=== PATIENT | female | born 1940 | race Caucasian/White ===

== ENCOUNTER 2018-10-05 14:23 | Inpatient (IN) | payer OTHER ==
[~2018-10-05] VITALS: Ht 154.9 cm; Wt 67.5 kg
[2018-10-05] MEDS ORDERED: PREDNISONE20 MG PO (15:41)
[2018-10-05] MEDS ORDERED: METFORMIN HYDR500 M1 PO (15:42)
[2018-10-05] MEDS ORDERED: ARICEPT5 MG PO (15:42)
[2018-10-05] MEDS ORDERED: FENOFIBRATE54 M1 PO (15:42)
[2018-10-05] MEDS ORDERED: SINGULAIR10 MG PO (15:43)
[2018-10-05 15:59] LABS: PLATELET COUNT 272 x10^3mcL (130-400)
[2018-10-05 16:12] LABS: CALCIUM 9.4 mg/dL (8.5-10.1); CARBON DIOXIDE 26.2 mmol/L (21-32); CHLORIDE SERUM 104 mmol/L (98-107); CREATININE SERUM 1.5 mg/dL (0.6-1.0); GLUCOSE SERUM 222 mg/dL (74-106); POTASSIUM SERUM 4.3 mmol/L (3.5-5.1); SODIUM SERUM 141 mmol/L (136-145)
[2018-10-05 16:23] LABS: ALBUMIN 3.3 g/dL (3.4-5.0); ALKALINE PHOSPHATASE 55 U/L (46-116); ALT/SGPT 20 U/L (14-59); AMYLASE 95 U/L (25-115); AST/SGOT 16 U/L (15-37); BILIRUBIN TOTAL 0.2 mg/dL (0.20-1.00); CHOLESTEROL 278 mg/dL (<200); HDL CHOLESTEROL 59 mg/dL (40-60); LIPASE 874 IU/L (73-393); MAGNESIUM 2.2 mg/dL (1.8-2.4); T4(THYROXINE) 10.1 ug/dL (4.7-13.3); TOTAL PROTEIN, SERUM 6.9 g/dL (6.4-8.2)
[2018-10-05 16:34] LABS: BAND NEUTROPHIL 7 % (0-10); BASOPHIL 0 % (0-2); MONOCYTE 2 % (0-7); SEGMENTED NEUTROPHILS 86 % (37-75)
[2018-10-05 16:35] LABS: PLATELET MORPHOLOGY PLATELETS NORMAL; rbc morphology (normal/abnorm) ABNORMAL (NORMAL)
[2018-10-05] MEDS ORDERED: BREO ELLIPTA1 POW IH (17:06)
[2018-10-05 17:12] LABS: UA SPECIFIC GRAVITY >=1.030 (1.005-1.035); microscopic required? YES; urine erythrocyte NEGATIVE (NEGATIVE)
[2018-10-05 17:23] LABS: AMPHETAMINE QUAL UR NONE DETECTED (See below)
[2018-10-05 17:56] VITALS: BP 155/38
[2018-10-05 17:57] VITALS: BP 155/38
[2018-10-05 19:20] VITALS: BP 136/45
[2018-10-05 19:22] VITALS: BP 136/45
[2018-10-05 23:55] VITALS: BP 130/42
[2018-10-06 03:23] VITALS: BP 107/42
[2018-10-06 04:56] LABS: BASOPHIL % 0.3 % (0-2); PLATELET COUNT 176 x10^3mcL (130-400)
[2018-10-06 05:15] LABS: RED CELL DISTRIBUTION WIDTH 16.5 % (11.5-14.5)
[2018-10-06 05:20] LABS: CALCIUM 8.3 mg/dL (8.5-10.1); CARBON DIOXIDE 22.7 mmol/L (21-32); CHLORIDE SERUM 110 mmol/L (98-107); CREATININE SERUM 1.7 mg/dL (0.6-1.0); GLUCOSE SERUM 188 mg/dL (74-106); MAGNESIUM 2.2 mg/dL (1.8-2.4); PHOSPHOROUS 4.2 mg/dL (2.5-4.9); POTASSIUM SERUM 4.5 mmol/L (3.5-5.1); SODIUM SERUM 143 mmol/L (136-145)
[2018-10-06 07:45] VITALS: BP 104/59
[2018-10-06 07:57] VITALS: Ht 154.9 cm; Wt 67.5 kg
[2018-10-06 12:10] VITALS: BP 116/59
[2018-10-06 16:00] VITALS: BP 112/55
[2018-10-06 19:30] VITALS: BP 121/55
[2018-10-06 23:30] VITALS: BP 129/67
[2018-10-07 03:21] VITALS: BP 108/63
[2018-10-07 05:53] LABS: BASOPHIL % 0.5 % (0-2); PLATELET COUNT 203 x10^3mcL (130-400)
[2018-10-07 05:54] LABS: RED CELL DISTRIBUTION WIDTH 17.2 % (11.5-14.5)
[2018-10-07 06:01] LABS: CALCIUM 8.2 mg/dL (8.5-10.1); CARBON DIOXIDE 27.1 mmol/L (21-32); CHLORIDE SERUM 112 mmol/L (98-107); CREATININE SERUM 1.4 mg/dL (0.6-1.0); GLUCOSE SERUM 112 mg/dL (74-106); MAGNESIUM 2.1 mg/dL (1.8-2.4); PHOSPHOROUS 3.7 mg/dL (2.5-4.9); POTASSIUM SERUM 4.4 mmol/L (3.5-5.1); SODIUM SERUM 146 mmol/L (136-145)
[2018-10-07 07:48] VITALS: BP 110/60
[2018-10-07 11:54] VITALS: BP 118/61
[2018-10-07 15:47] VITALS: BP 114/98
[2018-10-07 19:05] VITALS: BP 136/58
[2018-10-07 23:15] VITALS: BP 104/60
[2018-10-08 03:16] VITALS: BP 128/59
[2018-10-08 05:44] LABS: BASOPHIL % 0.5 % (0-2); PLATELET COUNT 173 x10^3mcL (130-400); RED CELL DISTRIBUTION WIDTH 16.6 % (11.5-14.5)
[2018-10-08 05:49] LABS: CARBON DIOXIDE 25.1 mmol/L (21-32); CHLORIDE SERUM 108 mmol/L (98-107); CREATININE SERUM 1.2 mg/dL (0.6-1.0); GLUCOSE SERUM 114 mg/dL (74-106); PHOSPHOROUS 2.8 mg/dL (2.5-4.9); POTASSIUM SERUM 4.1 mmol/L (3.5-5.1); SODIUM SERUM 142 mmol/L (136-145)
[2018-10-08 07:48] VITALS: BP 147/69
[2018-10-08 08:24] VITALS: BP 120/54
[2018-10-08 10:30] VITALS: BP 120/54
== END 2018-10-08 12:38 | disposition home or self-care (01) | DRG 853 ==
LOC: ED 14:23 → IC 16:47
PROVIDERS: Emergency Medicine; Internal Medicine Clinical Cardiac Electrophysiology; ADMIT Internal Medicine
PROC: 02HK3NZ Insertion of Intracardiac Pacemaker into Right Ventricle, Percutaneous Approach (ICD-10-PCS; 2018-10-06)
PROC: 02H63JZ Insertion of Pacemaker Lead into Right Atrium, Percutaneous Approach (ICD-10-PCS; 2018-10-07)
PROC: 02HK3JZ Insertion of Pacemaker Lead into Right Ventricle, Percutaneous Approach (ICD-10-PCS; 2018-10-07)
PROC: 0JH606Z Insertion of Pacemaker, Dual Chamber into Chest Subcutaneous Tissue and Fascia, Open Approach (ICD-10-PCS; principal; 2018-10-07 16:30)
DX: A41.9 Sepsis, unspecified organism (principal); J96.01 Acute respiratory failure with hypoxia; J69.0 Pneumonitis due to inhalation of food and vomit; N17.0 Acute kidney failure with tubular necrosis; I21.A1 Myocardial infarction type 2; I44.2 Atrioventricular block, complete; N39.0 Urinary tract infection, site not specified; E87.0 Hyperosmolality and hypernatremia; E44.1 Mild protein-calorie malnutrition; R65.20 Severe sepsis without septic shock; I12.9 Hypertensive chronic kidney disease with stage 1 through stage 4 chronic kidney disease, or unspecified chronic kidney disease; G90.8 Other disorders of autonomic nervous system; J84.10 Pulmonary fibrosis, unspecified; E11.22 Type 2 diabetes mellitus with diabetic chronic kidney disease; E11.65 Type 2 diabetes mellitus with hyperglycemia; N18.3 Chronic kidney disease, stage 3 (moderate); E86.0 Dehydration; S00.03XA Contusion of scalp, initial encounter; F03.90 Unspecified dementia, unspecified severity, without behavioral disturbance, psychotic disturbance, mood disturbance, and anxiety; W18.39XA Other fall on same level, initial encounter; Z91.81 History of falling; Y93.89 Activity, other specified; Y92.010 Kitchen of single-family (private) house as the place of occurrence of the external cause; Z79.84 Long term (current) use of oral hypoglycemic drugs
CPT/HCPCS: 36600; 82962; 83880; 90658; 90732; C1785; C1894; C9113; G0480; J0461; J0690; J1650; J1885; J2001; J2250; J2310; J2543; J3010; J3370; J3490; J7030; J7040; J7042; J7050; J7626; Q0092; Q9967

== ENCOUNTER 2019-06-09 21:09 | Emergency (ER) | payer OTHER ==
[~2019-06-09] VITALS: Ht 152.4 cm; Wt 64.9 kg
[~2019-06-09 21:09] MED LIST: ARICEPT5 MG PO; BREO ELLIPTA1 POW IH; FENOFIBRATE54 M1 PO; METFORMIN HYDR500 M1 PO; PREDNISONE20 MG PO; SINGULAIR10 MG PO
[2019-06-09 21:13] VITALS: Ht 152.4 cm; Wt 64.9 kg
[2019-06-09 22:10] LABS: BASOPHIL % 0.6 % (0-2); PLATELET COUNT 328 x10^3mcL (130-400)
[2019-06-09 22:13] LABS: CALCIUM 8.7 mg/dL (8.5-10.1); CARBON DIOXIDE 31.5 mmol/L (21-32); CHLORIDE SERUM 100 mmol/L (98-107); CREATININE SERUM 1.4 mg/dL (0.6-1.0); GLUCOSE SERUM 215 mg/dL (74-106); POTASSIUM SERUM 3.7 mmol/L (3.5-5.1); SODIUM SERUM 138 mmol/L (136-145)
[2019-06-09 22:17] LABS: ALBUMIN 3.4 g/dL (3.4-5.0); ALKALINE PHOSPHATASE 86 U/L (46-116); ALT/SGPT 19 U/L (14-59); AST/SGOT 32 U/L (15-37); BILIRUBIN TOTAL 0.23 mg/dL (0.20-1.00); LIPASE 431 IU/L (73-393); TOTAL PROTEIN, SERUM 6.9 g/dL (6.4-8.2)
[2019-06-09 23:51] VITALS: BP 146/53
== END 2019-06-09 23:51 | disposition home or self-care (01) ==
LOC: ED 21:09
PROVIDERS: Emergency Medicine
DX: S00.83XA Contusion of other part of head, initial encounter (principal); I10 Essential (primary) hypertension; E11.9 Type 2 diabetes mellitus without complications; E78.00 Pure hypercholesterolemia, unspecified; Z95.0 Presence of cardiac pacemaker; W22.8XXA Striking against or struck by other objects, initial encounter; Y93.89 Activity, other specified; Y92.89 Other specified places as the place of occurrence of the external cause; Y99.8 Other external cause status
CPT/HCPCS: 36415; Q0092

== ENCOUNTER 2019-08-02 02:51 | Inpatient (IN) | payer OTHER ==
[~2019-08-02] VITALS: Ht 152.4 cm; Wt 59.0 kg
[2019-08-02 02:58] VITALS: Ht 152.4 cm; Wt 59.0 kg
[2019-08-02 03:40] LABS: BASOPHIL % 0.1 % (0-2); PLATELET COUNT 396 x10^3mcL (130-400)
[2019-08-02 03:43] LABS: RED CELL DISTRIBUTION WIDTH 14.9 % (11.5-14.5)
[2019-08-02] MEDS ORDERED: METFORMIN HYDR500 M1 PO (04:21)
[2019-08-02] MEDS ORDERED: ARICEPT10 MG PO (04:22)
[2019-08-02] MEDS ORDERED: METOPROLOL SUC100 M2 PO (04:22)
[2019-08-02] MEDS ORDERED: LIPITOR80 MG PO (04:23)
[2019-08-02] MEDS ORDERED: GLUCOTROL5 MG PO (04:23)
[2019-08-02] MEDS ORDERED: LASIX40 MG PO (04:23)
[2019-08-02] MEDS ORDERED: BIOTIN PO (04:24)
[2019-08-02] MEDS ORDERED: ZOLOFT25 MG PO (04:24)
[2019-08-02 05:33] LABS: CALCIUM 8.7 mg/dL (8.5-10.1); CARBON DIOXIDE 27.4 mmol/L (21-32); CHLORIDE SERUM 100 mmol/L (98-107); CREATININE SERUM 2.1 mg/dL (0.6-1.0); GLUCOSE SERUM 88 mg/dL (74-106); POTASSIUM SERUM 3.3 mmol/L (3.5-5.1); SODIUM SERUM 141 mmol/L (136-145)
[2019-08-02 05:37] LABS: ALKALINE PHOSPHATASE 144 U/L (46-116); ALT/SGPT 40 U/L (14-59); AST/SGOT 51 U/L (15-37); BILIRUBIN TOTAL 0.41 mg/dL (0.20-1.00); MAGNESIUM 1.4 mg/dL (1.8-2.4); TOTAL PROTEIN, SERUM 6.2 g/dL (6.4-8.2)
[2019-08-02 05:38] LABS: ALBUMIN 2.6 g/dL (3.4-5.0)
[2019-08-02 06:16] VITALS: BP 112/56
[2019-08-02 08:21] VITALS: BP 109/51
[2019-08-02 12:29] VITALS: BP 155/63
[2019-08-02 16:38] VITALS: BP 122/44
[2019-08-02 20:21] VITALS: BP 117/54
[2019-08-03 05:57] VITALS: BP 116/62
[2019-08-03 06:51] LABS: CALCIUM 9.2 mg/dL (8.5-10.1); CARBON DIOXIDE 29.6 mmol/L (21-32); CHLORIDE SERUM 97 mmol/L (98-107); CREATININE SERUM 1.8 mg/dL (0.6-1.0); GLUCOSE SERUM 191 mg/dL (74-106); MAGNESIUM 2.1 mg/dL (1.8-2.4); PHOSPHOROUS 2.9 mg/dL (2.5-4.9); POTASSIUM SERUM 3.7 mmol/L (3.5-5.1); SODIUM SERUM 135 mmol/L (136-145)
[2019-08-03 07:45] LABS: BASOPHIL % 0 % (0-2); PLATELET COUNT 414 x10^3mcL (130-400); RED CELL DISTRIBUTION WIDTH 15.3 % (11.5-14.5)
[2019-08-03 09:10] VITALS: BP 118/62
[2019-08-03 12:46] VITALS: BP 124/66
[2019-08-03 17:21] VITALS: BP 128/62
[2019-08-03 21:05] VITALS: BP 117/56
[2019-08-04 05:34] VITALS: BP 102/52
[2019-08-04 07:20] LABS: CALCIUM 9.3 mg/dL (8.5-10.1); CARBON DIOXIDE 27.4 mmol/L (21-32); CHLORIDE SERUM 100 mmol/L (98-107); CREATININE SERUM 1.6 mg/dL (0.6-1.0); GLUCOSE SERUM 151 mg/dL (74-106); POTASSIUM SERUM 3.8 mmol/L (3.5-5.1); SODIUM SERUM 138 mmol/L (136-145)
[2019-08-04 07:47] LABS: PLATELET COUNT 465 x10^3mcL (130-400); RED CELL DISTRIBUTION WIDTH 14.8 % (11.5-14.5)
[2019-08-04 08:09] VITALS: BP 122/52
[2019-08-04 10:40] LABS: MONOCYTE 3 % (0-7); SEGMENTED NEUTROPHILS 94 % (37-75)
[2019-08-04 10:41] LABS: rbc morphology (normal/abnorm) NORMAL (NORMAL)
[2019-08-04 13:02] VITALS: BP 129/57
[2019-08-04 16:15] VITALS: BP 116/53
[2019-08-04 20:55] VITALS: BP 116/61
[2019-08-05 05:39] VITALS: BP 111/42
[2019-08-05 06:24] LABS: CHLORIDE SERUM 100 mmol/L (98-107); CREATININE SERUM 1.4 mg/dL (0.6-1.0); GLUCOSE SERUM 171 mg/dL (74-106); POTASSIUM SERUM 3.9 mmol/L (3.5-5.1); SODIUM SERUM 139 mmol/L (136-145)
[2019-08-05 06:55] LABS: PLATELET COUNT 460 x10^3mcL (130-400); RED CELL DISTRIBUTION WIDTH 14.9 % (11.5-14.5)
[2019-08-05 07:56] VITALS: BP 127/72
[2019-08-05 12:03] VITALS: BP 126/68
[2019-08-05 12:15] LABS: BAND NEUTROPHIL 4 % (0-10); BASOPHIL 0 % (0-2); MONOCYTE 6 % (0-7); MYELOCYTE 1 % (0-2); SEGMENTED NEUTROPHILS 82 % (37-75)
[2019-08-05 12:16] LABS: PLATELET MORPHOLOGY LARGE PLATELET SEEN; ovalocyte/elliptocyte 1+; rbc morphology (normal/abnorm) ABNORMAL (NORMAL); tear drop cell (dacryocyte) 1+
[2019-08-05 16:09] VITALS: BP 119/60
[2019-08-05 19:55] VITALS: BP 126/60
[2019-08-06 04:31] VITALS: BP 133/60
[2019-08-06 06:36] LABS: CALCIUM 8.8 mg/dL (8.5-10.1); CARBON DIOXIDE 31.1 mmol/L (21-32); CHLORIDE SERUM 102 mmol/L (98-107); CREATININE SERUM 1.4 mg/dL (0.6-1.0); GLUCOSE SERUM 147 mg/dL (74-106); POTASSIUM SERUM 4.4 mmol/L (3.5-5.1); SODIUM SERUM 140 mmol/L (136-145)
[2019-08-06 07:01] VITALS: BP 133/60
[2019-08-06 07:49] LABS: PLATELET COUNT 461 x10^3mcL (130-400)
[2019-08-06 07:52] VITALS: BP 132/54
[2019-08-06 10:31] LABS: BAND NEUTROPHIL 4 % (0-10); BASOPHIL 0 % (0-2); MONOCYTE 6 % (0-7); SEGMENTED NEUTROPHILS 84 % (37-75); ovalocyte/elliptocyte 1+; rbc morphology (normal/abnorm) ABNORMAL (NORMAL); tear drop cell (dacryocyte) 1+
[2019-08-06 12:09] VITALS: BP 115/42
[2019-08-06] MEDS ORDERED: ZITHROMAX TRI-500 MG PO (12:43)
[2019-08-06] MEDS ORDERED: L40 PO (12:55)
[2019-08-06 13:56] VITALS: BP 115/42
[2019-08-06] MEDS ORDERED: PREDNISONE20 MG PO (15:59)
[2019-08-06] MEDS ORDERED: MILLIPRED5 M1 PO (15:59)
[2019-08-06 16:31] VITALS: BP 123/66
== END 2019-08-06 18:20 | disposition home health service (06) | DRG 871 ==
LOC: ED 02:51 → DU 05:53 → MU 08-04 17:54
PROVIDERS: Emergency Medicine; General Practice; ADMIT Family Medicine
DX: A41.9 Sepsis, unspecified organism (principal); J18.9 Pneumonia, unspecified organism; J96.01 Acute respiratory failure with hypoxia; I50.33 Acute on chronic diastolic (congestive) heart failure; E43 Unspecified severe protein-calorie malnutrition; J84.10 Pulmonary fibrosis, unspecified; I25.10 Atherosclerotic heart disease of native coronary artery without angina pectoris; R74.0 Nonspecific elevation of levels of transaminase and lactic acid dehydrogenase [LDH]; E11.22 Type 2 diabetes mellitus with diabetic chronic kidney disease; E83.42 Hypomagnesemia; E87.6 Hypokalemia; F03.90 Unspecified dementia, unspecified severity, without behavioral disturbance, psychotic disturbance, mood disturbance, and anxiety; Z79.84 Long term (current) use of oral hypoglycemic drugs; Z95.0 Presence of cardiac pacemaker
CPT/HCPCS: 36600; 82962; 83880; 85378; 87804; 90658; 90732; 97116-GP; 97530-GP; A9540; G0378; J0456; J0696; J1644; J1815; J2270; J2920; J7620; Q0092